=== PATIENT | male | born 1955 | race Caucasian/White ===

== ENCOUNTER 2020-01-15 22:31 | Outpatient (REF) | payer OTHER, SELFPAY ==
[2020-01-15 22:20] LABS: Calculated LDL 97 mg/dL (<100); Cholesterol 197 mg/dL (<200); HDL Cholesterol 92 mg/dL (40-60); Triglyceride 43 mg/dL (<150)
[2020-01-19 09:11] LABS: PSA, Screening 0.4 ng/mL (0.0-4.5)
== END 2020-01-15 22:51 ==
LOC: NCHCN 22:31
PROVIDERS: PCP Internal Medicine; Visit Provider Internal Medicine
DX: Z00.00 Encounter for general adult medical examination without abnormal findings (principal); Z13.220 Encounter for screening for lipoid disorders; Z12.5 Encounter for screening for malignant neoplasm of prostate
CPT/HCPCS: 80061; 84153

== ENCOUNTER 2020-04-13 17:37 | Outpatient (REF) | payer OTHER, SELFPAY ==
[2020-04-18 16:08] LABS: Patient Race White; SARS-CoV-2 RNA Undetected (Undetected); SARS-CoV-2 Specimen Source Nasal
== END 2020-04-13 17:57 ==
LOC: NCHCN 17:37
PROVIDERS: PCP Internal Medicine; Visit Provider Nurse Practitioner Family
DX: Z11.59 Encounter for screening for other viral diseases (principal)
CPT/HCPCS: U0003

== ENCOUNTER 2021-03-28 00:49 | Outpatient (RCR) | payer MEDICARE, OTHER, SELFPAY ==
[2021-03-07] MEDS: Normal Saline Flush 10 ML SYR IVP (10:22)
[2021-03-07 10:47] LABS: Abs Immature Grans 0.05 10^3/uL (0.0-0.06); Absolute Basophil Count 0.03 10^3/uL (0.0-0.2); Absolute Eosinophil Count 0.07 10^3/uL (0.0-0.7); Absolute Lymphocyte Count 0.57 10^3/uL (1.2-3.4); Absolute Monocyte Count 0.72 10^3/uL (0.1-0.8); Absolute Neutrophil Count 11.74 10^3/uL (1.2-6.7); Basophils % 0.2; Eosinophils % 0.5; HCT 36.4 % (40.0-50.0); HGB 11.5 g/dL (13.5-17.5); Immature Grans % 0.4; Lymphocytes % 4.3; MCH 27.8 pg (27.0-33.0); MCHC 31.6 % (32.0-36.0); MCV 88.1 fL (80-95); Monocytes % 5.5; Neutrophils % 89.1; Nucleated RBC 0 %; Platelet Count 390 10^3/uL (130-400); RBC 4.13 10^6/uL (4.36-5.78); RDW 14.9 % (11.8-14.1); RDW-SD 48.5 fL; WBC 13.18 10^3/uL (4.4-10.8)
[2021-03-07 10:51] LABS: ALT 20 U/L (16-63); AST 14 U/L (15-37); Albumin 2.7 g/dL (3.4-5.0); Alkaline Phosphatase 58 U/L (46-116); Anion Gap 3.8 mmol/L (3-11); BUN 20 mg/dL (7-18); Bilirubin, Total 0.2 mg/dL (0.2-1.0); CO2 32.2 mmol/L (21.0-32.0); CREATININE 0.9 mg/dL (0.70-1.30); Calcium 8.6 mg/dL (8.5-10.1); Chloride 99 mmol/L (98-107); Glucose 113 mg/dL (74-106); Magnesium 2.1 mg/dL (1.8-2.4); Potassium 4.3 mmol/L (3.5-5.1); Sodium 135 mmol/L (136-145); Total Protein 7.1 g/dL (6.4-8.2)
[2021-03-07] MEDS: Heparin 500 UNITS/5 ML SYRINGE (13:52)
[2021-03-28] MEDS: Heparin 500 UNITS/5 ML SYRINGE IV (09:42)
[2021-03-28] MEDS: Normal Saline Flush 10 ML SYR IVP (09:42)
[2021-03-28 09:50] LABS: Abs Immature Grans 0.07 10^3/uL (0.0-0.06); Absolute Eosinophil Count 0.01 10^3/uL (0.0-0.7); Absolute Lymphocyte Count 0.61 10^3/uL (1.2-3.4); Basophils % 0.4; Eosinophils % 0.1; HCT 36.5 % (40.0-50.0); HGB 11.5 g/dL (13.5-17.5); Immature Grans % 0.5; Lymphocytes % 4.5; MCH 27.5 pg (27.0-33.0); MCHC 31.5 % (32.0-36.0); MCV 87.3 fL (80-95); MPV 8.2 fL (8.0-11.0); Monocytes % 4.6; Neutrophils % 89.9; Nucleated RBC 0 %; Platelet Count 393 10^3/uL (130-400); RBC 4.18 10^6/uL (4.36-5.78); RDW 14.6 % (11.8-14.1); RDW-SD 46.5 fL; WBC 13.57 10^3/uL (4.4-10.8)
[2021-03-28 09:52] LABS: Absolute Basophil Count 0.05 10^3/uL (0.0-0.2); Absolute Monocyte Count 0.62 10^3/uL (0.1-0.8)
[2021-03-28 10:13] LABS: ALT 21 U/L (16-63); AST 16 U/L (15-37); Albumin 2.8 g/dL (3.4-5.0); Alkaline Phosphatase 61 U/L (46-116); Anion Gap 5.1 mmol/L (3-11); BUN 13 mg/dL (7-18); Bilirubin, Total 0.2 mg/dL (0.2-1.0); CO2 29.9 mmol/L (21.0-32.0); CREATININE 0.8 mg/dL (0.70-1.30); Calcium 8.6 mg/dL (8.5-10.1); Chloride 102 mmol/L (98-107); Glucose 101 mg/dL (74-106); Potassium 4.3 mmol/L (3.5-5.1); Sodium 137 mmol/L (136-145)
== END 2021-04-03 23:59 | disposition home or self-care (01) ==
LOC: INF 00:49
PROVIDERS: PCP Internal Medicine; Visit Provider Internal Medicine Hematology & Oncology
DX: C32.9 Malignant neoplasm of larynx, unspecified (principal); Z45.2 Encounter for adjustment and management of vascular access device
CPT/HCPCS: 36591; 80053; 83735; 85025

== ENCOUNTER 2021-04-18 02:48 | Outpatient (RCR) | payer MEDICARE, OTHER, SELFPAY ==
[2021-04-18] MEDS: Heparin 500 UNITS/5 ML SYRINGE IV (11:01)
[2021-04-18] MEDS: Normal Saline Flush 10 ML SYR IVP (11:01)
[2021-04-18 11:10] LABS: Abs Immature Grans 0.03 10^3/uL (0.0-0.06); Absolute Basophil Count 0.02 10^3/uL (0.0-0.2); Absolute Eosinophil Count 0.06 10^3/uL (0.0-0.7); Absolute Lymphocyte Count 0.59 10^3/uL (1.2-3.4); Absolute Monocyte Count 0.37 10^3/uL (0.1-0.8); Absolute Neutrophil Count 6.44 10^3/uL (1.2-6.7); Basophils % 0.3; Eosinophils % 0.8; HCT 32.7 % (40.0-50.0); HGB 10.4 g/dL (13.5-17.5); Immature Grans % 0.4; Lymphocytes % 7.9; MCH 28.1 pg (27.0-33.0); MCHC 31.8 % (32.0-36.0); MCV 88.4 fL (80-95); MPV 8.4 fL (8.0-11.0); Monocytes % 4.9; Neutrophils % 85.7; Nucleated RBC 0 %; Platelet Count 353 10^3/uL (130-400); RDW 14.9 % (11.8-14.1); RDW-SD 47.1 fL; WBC 7.51 10^3/uL (4.4-10.8)
[2021-04-18 11:37] LABS: ALT 20 U/L (16-63); AST 15 U/L (15-37); Albumin 2.8 g/dL (3.4-5.0); Alkaline Phosphatase 62 U/L (46-116); Anion Gap 5.2 mmol/L (3-11); BUN 15 mg/dL (7-18); Bilirubin, Total 0.2 mg/dL (0.2-1.0); CO2 31.8 mmol/L (21.0-32.0); CREATININE 0.8 mg/dL (0.70-1.30); Calcium 8.6 mg/dL (8.5-10.1); Chloride 102 mmol/L (98-107); Glucose 98 mg/dL (74-106); Magnesium 1.9 mg/dL (1.8-2.4); Potassium 4.7 mmol/L (3.5-5.1); Sodium 139 mmol/L (136-145)
== END 2021-05-03 23:59 | disposition home or self-care (01) ==
LOC: INF 02:48
PROVIDERS: PCP Internal Medicine; Visit Provider Internal Medicine Hematology & Oncology
DX: C32.9 Malignant neoplasm of larynx, unspecified (principal); Z45.2 Encounter for adjustment and management of vascular access device
CPT/HCPCS: 36591; 80053; 83735; 85025

== ENCOUNTER 2021-05-09 02:06 | Outpatient (RCR) | payer MEDICARE, OTHER, SELFPAY ==
[2021-05-09] MEDS: Normal Saline Flush 10 ML SYR IVP (07:57)
[2021-05-09 08:07] LABS: Abs Immature Grans 0.02 10^3/uL (0.0-0.06); Absolute Basophil Count 0.07 10^3/uL (0.0-0.2); Absolute Eosinophil Count 0.15 10^3/uL (0.0-0.7); Absolute Lymphocyte Count 0.68 10^3/uL (1.2-3.4); Absolute Monocyte Count 0.53 10^3/uL (0.1-0.8); Absolute Neutrophil Count 4.23 10^3/uL (1.2-6.7); Basophils % 1.2; Eosinophils % 2.6; HCT 31.4 % (40.0-50.0); HGB 9.7 g/dL (13.5-17.5); Immature Grans % 0.4; MCH 27.9 pg (27.0-33.0); MCHC 30.9 % (32.0-36.0); MCV 90.2 fL (80-95); MPV 8.4 fL (8.0-11.0); Monocytes % 9.3; Neutrophils % 74.5; Nucleated RBC 0 %; Platelet Count 365 10^3/uL (130-400); RBC 3.48 10^6/uL (4.36-5.78); RDW 16.3 % (11.8-14.1); RDW-SD 52.4 fL; WBC 5.68 10^3/uL (4.4-10.8)
[2021-05-09 08:21] LABS: ALT 19 U/L (16-63); AST 17 U/L (15-37); Albumin 2.7 g/dL (3.4-5.0); Alkaline Phosphatase 65 U/L (46-116); BUN 15 mg/dL (7-18); Bilirubin, Total 0.2 mg/dL (0.2-1.0); CREATININE 0.8 mg/dL (0.70-1.30); Calcium 8.5 mg/dL (8.5-10.1); Chloride 100 mmol/L (98-107); Glucose 88 mg/dL (74-106); Magnesium 1.7 mg/dL (1.8-2.4); Potassium 4.6 mmol/L (3.5-5.1); Sodium 135 mmol/L (136-145); Total Protein 6.5 g/dL (6.4-8.2)
== END 2021-06-03 23:59 | disposition home or self-care (01) ==
LOC: INF 02:06
PROVIDERS: PCP Internal Medicine; Visit Provider Internal Medicine Hematology & Oncology
DX: C32.9 Malignant neoplasm of larynx, unspecified (principal); Z45.2 Encounter for adjustment and management of vascular access device
CPT/HCPCS: 36591; 80053; 83735; 85025

== ENCOUNTER 2021-05-20 02:37 | Emergency (ER) | payer MEDICARE, OTHER, SELFPAY ==
--- NOTE | 2021-05-20 | DI.RAD_ITS ---
Exam(s) XR ABDOMEN FLAT PLATE EXAM: XR ABDOMEN FLAT PLATE CLINICAL HISTORY: post injection of contrast to confirm tube placement. TECHNIQUE: 2D digital imaging was performed. COMPARISON: CR,XR XR ABDOMEN FLAT PLATE from 05/20/2021 FINDINGS: Single AP supine portable view of the abdomen reveals contrast within the gastric lumen and duodenal C-loop. The gastrostomy tube balloon and tip are within the mid stomach level. There is no extra judson geo contrast extravasation. IMPRESSION: DATA REPOSITORY: RADIATION DOSE DELIVERED:
[2021-05-20 02:43] VITALS: BP 100/62; PULSE 54; RESP 16; TEMP 36.6; O2SAT 100
--- NOTE | 2021-05-20 02:43 | ED.GENADUL_ITS ---
Discharge Plan Disposition Patient Disposition: HOME Condition: Good Discharge Details Clinical Impression: Dislodged gastrostomy tube Primary Care Provider: Soha Gregg ED Provider: Gucci Slaughter Meds and Earnest Rx's Prescriptions: Continued famotidine 40 mg/5 mL (8 mg/mL) suspension 20 mg feeding tube BID RF: 0 ibuprofen 100 mg/5 mL suspension 200 mg feeding tube BID PRNRF: 0 metronidazole 250 mg tablet 250 mg feeding tube Q24H RF: 0 acetaminophen 160 mg/5 mL liquid 1,000 mg PO Q4H PRNRF: 0 oxycodone 5 mg/5 mL solution 5 mg PO Q4H PRNRF: 0 gabapentin 300 mg capsule 300 mg feeding tube TID RF: 0 ondansetron 8 mg tablet,disintegrating 8 mg PO Q8H PRNRF: 0 metoclopramide HCl 5 mg/5 mL solution 10 mg feeding tube Q8H RF: 0 hydrocortisone valerate 0.2 % cream 1 applic topical BID PRNRF: 0 Discharge Instructions Additional Instructions: We did not have a gastrotomy tube but did have the Montana-Álvarez. AXR with contrast shows good position. Be sure to read the directions supplied and keep your tubes clean. Return to ED if problems. Medical Decision Making Gastrostomy tube has been in place for over 6 months. Patient and report that his oncologist was going to have the treatment replace with a Montana-Álvarez device. We did not have Gastrostomy tube but we did have the Mi-Álvarez device. This was placed without complication. X-ray with Omnipaque injection obtained confirming correct placement. Patient discharged home with required attachments and instructions. HPI General Mode of arrival: ambulatory . Date/Time Provider Initiated Documentation: 05/20/21 02:38 . Limitations to Documentation: no limitations . Information obtained by: patient and RN notes reviewed . HPI Narrative: Patient presents to the ED after accidental dislodgment of the gastrostomy tube which he is reliant on due to trismus. They brought the old tube with them. There was no significant bleeding or drainage. He has no pain. Related Data Home Medications Medication Instructions Recorded Confirmed acetaminophen 160 mg/5 mL oral 1,000 mg PO Q4H PRN ml 04/25/21 05/20/21 liquid famotidine 40 mg/5 mL (8 mg/mL) 20 mg FEEDING TUBE BID 04/25/21 05/20/21 oral suspension gabapentin 300 mg capsule 300 mg FEEDING TUBE TID 04/25/21 05/20/21 hydrocortisone valerate 0.2 % 1 applic TOPICAL BID PRN 04/25/21 05/20/21 topical cream ibuprofen 100 mg/5 mL oral 200 mg FEEDING TUBE BID PRN ml 04/25/21 05/20/21 suspension metoclopramide HCl 5 mg/5 mL oral 10 mg FEEDING TUBE Q8H ml 04/25/21 05/20/21 solution metronidazole 250 mg tablet 250 mg FEEDING TUBE Q24H tab 04/25/21 05/20/21 ondansetron 8 mg disintegrating 8 mg PO Q8H PRN 04/25/21 05/20/21 tablet oxycodone 5 mg/5 mL oral solution 5 mg PO Q4H PRN 04/25/21 05/20/21 Allergies Allergy/AdvReac Type Severity Reaction Status Date / Time cetuximab Allergy Verified 05/20/21 02:46 Review of Systems Constitutional Constitutional: Denies fever(s) Cardiovascular Cardiovascular: Denies chest pain and Denies dyspnea Respiratory Respiratory: Denies cough and Denies dyspnea Gastrointestinal Gastrointestinal: Denies abdominal pain PFSH All Active Problems (Updated 05/20/21 @ 04:27 by Gucci Slaughter MD) Dislodged gastrostomy tube (Acute) Medical History (Updated 05/20/21 @ 04:27 by Gucci Slaughter MD) Abscess Dysphagia Laryngeal cancer Multiple facial fractures Surgical History S/P appendectomy Social History Smoking/Tobacco Use Status: Former Tobacco Use Smoking risk assessment performed?: Yes Substance use type: does not use Do you feel safe at home: Yes Do you feel safe in your relationship?: Yes Exam Const General: comfortable and no acute distress Orientation: alert and oriented x3 HENMT Head: normocephalic and atraumatic Resp Effort & Inspection: normal respiratory effort GI Inspection: other (Gtube site in left upper) Palpation: soft and nontender Neuro General: patient alert, patient oriented x3 and moves all extremities Cognition: normal cognition Procedures Feeding Tube Replacement Type of Tube: gastrostomy Insertion Site Prior to Procedure: clean Tube Used for Reinsertion: other (Montana-Álvarez ) Slovak Tube Size (F): 18 Balloon size (mL): 10 Verification of Placement: gastrograffin injection Patient Tolerated Procedure: well and no complications
--- NOTE | 2021-05-20 03:00 | DI.RAD_ITS ---
Exam(s) XR ABDOMEN FLAT PLATE EXAM: 2D digital imaging was performed. CLINICAL HISTORY: check feeding tube placement. COMPARISON: No exams were available for comparison TECHNIQUE: Supine views of the abdomen performed. FINDINGS: BOWEL GAS PATTERN: Nondistended. CALCIFICATIONS: No radiopaque calcifications. OSSEOUS STRUCTURES: Normal for age. OTHER FINDINGS: There is a percutaneous gastrostomy tube projected just to the left of the lumbar spi ne. Lung bases: Pulmonary fibrotic changes are seen in the lungs. The distal aspect of what appears to b e a central venous catheter is seen to the right of the thoracic spine. Please correlate clinically. IMPRESSION: 1. Nonobstructive bowel gas pattern. 2. Percutaneous gastrostomy tube seen to the left of the lumbar spine. DATA REPOSITORY: RADIATION DOSE DELIVERED:
[2021-05-20 04:30] VITALS: BP 102/58; PULSE 58; RESP 16; O2SAT 98
--- NOTE | 2021-05-20 05:50 | DI.VRAD_ITS ---
PROCEDURE INFORMATION: Exam: XR Abdomen Exam date and time: 05/20/2021 3:13 AM Age: 65 years old Clinical indication: Other: Tube placement TECHNIQUE: Imaging protocol: XR of the abdomen. Views: Frontal supine view of the abdomen. 1 View. COMPARISON: CT NECK CHEST W 03/07/2021 2:12 PM FINDINGS: Gastrointestinal tract: Gastrostomy tube balloon projects over the gastric body. Contrast injected through the tube opacifies the partially decompressed stomach and proximal descending duodenum Bones/joints: Unremarkable. IMPRESSION: Gastrostomy tube in the stomach as noted Dictated and Authenticated by: Gigi Weeks MD. Ordering:CELIA Duckworth MD
--- NOTE | 2021-05-20 05:50 | DI.VRAD_ITS ---
PROCEDURE INFORMATION: Exam: XR Abdomen Exam date and time: 05/20/2021 4:20 AM Age: 65 years old Clinical indication: Other: Tube placement w/contrast TECHNIQUE: Imaging protocol: XR of the abdomen. Views: Frontal supine view of the abdomen. 1 View. COMPARISON: CR XR ABDOMEN FLAT PLATE 05/20/2021 3:16 AM FINDINGS: Gastrointestinal tract: Gastrostomy tube balloon projects over the gastric body. Contrast noted within the partially decompressed stomach and proximal duodenum Bones/joints: Unremarkable. IMPRESSION: Gastrostomy tube presumably in the gastric body Dictated and Authenticated by: Gigi Weeks MD. Ordering:CELIA Duckworth MD
== END 2021-05-20 04:38 | disposition home or self-care (01) ==
PROVIDERS: Emergency Provider Emergency Medicine; PCP Internal Medicine
DX: T85.528A Displacement of other gastrointestinal prosthetic devices, implants and grafts, initial encounter (principal)
CPT/HCPCS: 43762; 99283; 74018; 99282

== ENCOUNTER 2021-07-04 01:14 | Outpatient (RCR) | payer MEDICARE, OTHER, SELFPAY ==
[2021-06-06] MEDS: Normal Saline Flush 10 ML SYR IVP (07:49)
[2021-06-06 08:01] LABS: Abs Immature Grans 0.02 10^3/uL (0.0-0.06); Absolute Basophil Count 0.06 10^3/uL (0.0-0.2); Absolute Eosinophil Count 0.07 10^3/uL (0.0-0.7); Absolute Lymphocyte Count 0.59 10^3/uL (1.2-3.4); Absolute Monocyte Count 0.51 10^3/uL (0.1-0.8); Absolute Neutrophil Count 3.97 10^3/uL (1.2-6.7); Basophils % 1.1; Eosinophils % 1.3; HCT 31.1 % (40.0-50.0); HGB 9.7 g/dL (13.5-17.5); Immature Grans % 0.4; Lymphocytes % 11.3; MCH 29.1 pg (27.0-33.0); MCHC 31.2 % (32.0-36.0); MCV 93.4 fL (80-95); MPV 8.5 fL (8.0-11.0); Monocytes % 9.8; Neutrophils % 76.1; Nucleated RBC 0 %; Platelet Count 291 10^3/uL (130-400); RBC 3.33 10^6/uL (4.36-5.78); RDW 18.6 % (11.8-14.1); WBC 5.22 10^3/uL (4.4-10.8)
[2021-06-06 08:19] LABS: ALT 21 U/L (16-63); AST 18 U/L (15-37); Albumin 2.9 g/dL (3.4-5.0); Alkaline Phosphatase 64 U/L (46-116); BUN 23 mg/dL (7-18); Bilirubin, Total 0.3 mg/dL (0.2-1.0); CREATININE 0.6 mg/dL (0.70-1.30); Calcium 8.3 mg/dL (8.5-10.1); Chloride 102 mmol/L (98-107); Glucose 98 mg/dL (74-106); Magnesium 1.8 mg/dL (1.8-2.4); Potassium 4.5 mmol/L (3.5-5.1); Sodium 138 mmol/L (136-145); Total Protein 6.6 g/dL (6.4-8.2)
[2021-07-04 07:41] LABS: Abs Immature Grans 0.03 10^3/uL (0.0-0.06); Absolute Basophil Count 0.06 10^3/uL (0.0-0.2); Absolute Eosinophil Count 0.12 10^3/uL (0.0-0.7); Absolute Monocyte Count 0.49 10^3/uL (0.1-0.8); Absolute Neutrophil Count 4.98 10^3/uL (1.2-6.7); Eosinophils % 1.9; HCT 33.9 % (40.0-50.0); HGB 10.7 g/dL (13.5-17.5); Immature Grans % 0.5; Lymphocytes % 9.6; MCH 29.6 pg (27.0-33.0); MCHC 31.6 % (32.0-36.0); MCV 93.6 fL (80-95); MPV 8.3 fL (8.0-11.0); Monocytes % 7.8; Neutrophils % 79.2; Nucleated RBC 0 %; Platelet Count 298 10^3/uL (130-400); RBC 3.62 10^6/uL (4.36-5.78); RDW 17.4 % (11.8-14.1); RDW-SD 60.5 fL; WBC 6.28 10^3/uL (4.4-10.8)
[2021-07-04] MEDS: Normal Saline Flush 10 ML SYR IVP (08:17)
[2021-07-04 08:34] LABS: ALT 20 U/L (16-63); AST 23 U/L (15-37); Albumin 3.1 g/dL (3.4-5.0); Alkaline Phosphatase 68 U/L (46-116); BUN 18 mg/dL (7-18); Bilirubin, Total 0.2 mg/dL (0.2-1.0); CREATININE 0.6 mg/dL (0.70-1.30); Calcium 8.5 mg/dL (8.5-10.1); Chloride 100 mmol/L (98-107); Glucose 105 mg/dL (74-106); Magnesium 1.5 mg/dL (1.8-2.4); Potassium 4.5 mmol/L (3.5-5.1); Sodium 135 mmol/L (136-145)
== END 2021-07-04 23:59 | disposition home or self-care (01) ==
LOC: INF 01:14
PROVIDERS: PCP Internal Medicine; Visit Provider Internal Medicine Hematology & Oncology
DX: C32.9 Malignant neoplasm of larynx, unspecified (principal); Z45.2 Encounter for adjustment and management of vascular access device
CPT/HCPCS: 36591; 80053; 83735; 85025

== ENCOUNTER 2021-07-25 02:15 | Outpatient (CLI) | payer MEDICARE, OTHER, SELFPAY ==
[2021-07-25 11:32] LABS: Source Nasal/Nares
[2021-07-25 17:58] LABS: COVID-19 PCR Negative (Negative)
== END 2021-07-25 02:16 | disposition home or self-care (01) ==
LOC: LBO 02:15
PROVIDERS: PCP Internal Medicine; Visit Provider Family Medicine
DX: Z20.822 Contact with and (suspected) exposure to COVID-19 (principal); Z01.818 Encounter for other preprocedural examination
CPT/HCPCS: 87635; U0005

== ENCOUNTER 2021-07-27 00:19 | Outpatient (CLI) | payer MEDICARE, OTHER, SELFPAY ==
--- NOTE | 2021-07-27 | DI.RAD_ITS ---
Exam(s) RF MODIFIED SPEECH BA SWALLOW TECHNIQUE: Modified barium swallow was performed in conjunction with speech pathology. CONTRAST MATERIAL: Multiple consistencies barium were administered.. COMPARISON: No exams were available for comparison FINDINGS: Note that this is not a dedicated esophagram, distal esophagus not evaluated. There was laryngeal penetration and mild aspiration of with thin liquids. There is pooling in the va llecula and piriform sinuses with all consistencies, greater with increasing thickness of consistenc y. There is adequate cough reflex. Please see speech pathology report for complete details. IMPRESSION: Mild aspiration with thin liquids. Pooling in the vallecular and piriform sinuses. Fluoro time 3 minutes 30 seconds RADIATION DOSE DELIVERED: Chanr=21.2 mGy
--- NOTE | 2021-07-27 10:04 | ST.MBS_ITS ---
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 He is currently followed by Palliative Care, with plan to continue Panitumumab until progression or intolerance.?Patient is referred for VFSE/MBSS from Dr. Rueda given ongoing dysphagia, concerns for aspiration; patient has history of pneumonitis as recently as 02/2021; [place] [facility] [place] Moisés Reeves MD[place] who suspected cough is most likely secondary to aspiration vs airway obstruction from RML tumor; purpose of study today to address safety/comfort of swallowing in context of current disease course. 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 S/P appendectomy Previous Imaging: Patient does indicate prior VFSE/MBSS (with simultaneous ?FEES) at [place], spouse reports patient had worked with FREEDOM Mendoza over Summer 2020 for swallowing exercises and imaging, however unable to locate this documentation despite multiple attempts, including assistance from clinical nurse navigator through [facility]. SUBJECTIVE: Patient arrives with spouse today. Patient reports continued difficulties with speaking at length due to xerostomia and trismus, although this has improved relative to recent GENETICS PHYSICIAN visit; he continues to hack up thick paste; is able to tolerate IDDSI levels 2-4 without overt s/sx aspiration at this time, reports he typically is not swallowing any liquids or using any kind of thickener at this time; reports cough worsens with regurgitation, even more so if he is lying flat, however he has had less coughing lately, more throat clearing and volitional regurgitation, during which times he re-swallows residue which he is able to feel. *Patient does note that he was unable to feel any new sensation during observed aspiration episode. Other: Trismus presentation/severity LEIF not measured this date, however much improved relative to 7 mm as of 04/18/21 IMPRESSIONS: Overall Moderate-severe oropharyngeal dysphagia (Swallow safety is mild- moderately impaired; swallow efficiency is severely impaired / DIGEST Score = 3) with question of esophageal component as evidenced by severe pyriform sinus residue, esophageal retention and noted hypertrophy at level of cervical esophagus (C5-C6), likely chronic; overall dysphagia characterized by reduced laryngeal elevation, anterior hyoid excursion, incomplete laryngeal vestibule closure, and absent epiglottic inversion, resulting in penetration during initial swallow onset from current bolus across all trials; absent pharyngeal stripping wave, reduced tongue base retraction, and reduced pharyngeal contraction (especially reduced on LEFT side), combined with minimal UES opening, results in significant pharyngeal residue, primarily within pyriform sinuses (severe); with trial of thin liquid wash, (silent) aspiration is seen during initial swallow onset from current bolus, and after initial swallow from combination of thin liquid+pharyngeal stasis. Patient does benefit from head turn to RIGHT for airway protection, successive swallows for reduction of overall pharyngeal residue prior to introduction of new bolus material. Dysphagia presentation likely due to disuse atrophy as well as [facility] effects of PANEL MONITOR (completed 2018), ie radiation fibrosis. Patient appears to be at moderate risk for potential aspiration PNA and/or pulmonary compromise and low-moderate for malnutrition, moderate risk for dehydration. Diet modification is indicated; non-oral nutrition continues to be indicated. Swallow prognosis is fair, given age, willingness to participate in direct treatment, patient/caregiver training in risk management as outlined, including use of trialed compensatory strategies as outlined above. Barriers include expected effects from radiation fibrosis, post surgical anatomical changes. Patient appears to be a good candidate for behavioral swallow rehabilitation. Specialist referrals: May consider GI, ENT (to address hypertrophy noted at C5- C6 level; does appear to contribute to impedence of bolus flow + mild esophageal retention) *Continue ongoing support through Palliative Care, RD Ancillary tests: N/A Diet texture recommendation: IDDSI Level 5-Minced & Moist Solids, 1-Slightly Thick Liquids 0-Thin Liquids outside of meals only PO medications as tolerated and/or via tube as appropriate Please see further details at www.iddsi.org Risk Management: Head turn to RIGHT side prior to swallow onset Multiple swallows per bolus (x7-10) to encourage clearance of significant pharyngeal stasis/residue Behavioral reflux precautions, including upright position during + 90 mins after meals. Small bites, no larger than [id number] Very small sips, approx 5mL / teaspoon Avoid intake of IDDSI Level 0 thin liquids during meal If drinking thin liquids, 5mL at a time; follow with hard throat clear > Re-swallow Control risk factors for aspiration pneumonia via (a) thorough oral hygiene & (b) maintaining physical mobility as tolerated PLAN: Therapy: Recommend subsequent outpatient session with GENETICS PHYSICIAN to review results of today's exam and develop treatment plan as appropriate, address trismus management Goal: TBD pending patient/caregiver interview Follow-up exam: May consider repeat MBSS or FEES once treatment has been completed, per clinical outcomes and patient interview Thank you for allowing me to take part in this patient's care. Please feel free to contact me with any questions/concerns. Estela Muñiz MA [facility]-GENETICS PHYSICIAN Speech Language Pathologist [phone] OBJECTIVE: Videofluoroscopic Swallow Evaluation (VFSE/MBSS) was conducted in the lateral and [id number] projections by Speech-Language Pathologist, in collaboration with Radiologist, to evaluate oropharyngeal swallow function. Anatomic view under fluoroscopy: Other - Notable post-surgical changes PO Barium Contrast Trials Oral barium water-soluble contrast was administered as follows: IDDSI Level 0 Varibar thin liquid (40% w/v) IDDSI Level 2 Varibar nectar thick/mildly thick liquid (40% w/v) IDDSI Level 3 Varibar thin honey/liquidised/moderately-thick (40% w/v) IDDSI Level 4 Varibar pudding/pureed/extremely thick (40% w/v) IDDSI Level 7 Regular Solid: 1/2 miah cracker coated in 3 mL Varibar pudding PHYSIOLOGIC FINDINGS (1) Oral Impairment 1 Lip Closure [0-No labial escape] 2 Tongue Control [0- Cohesive bolus between tongue to palatal seal] 3 Bolus Preparation/Mastication [0- Timely and efficient chewing/mashing] 4 Bolus Transport/Lingual Motion [0- Brisk tongue motion] 5 Oral residue [1- Trace residue lining oral structures] Location floor of mouth, palate, tongue 6 Initiation of pharyngeal swallow [1- Bolus head in valleculae] Pharyngeal Impairment 7 Velar Elevation [1- Trace column of contrast or air between soft palate and pharyngeal wall] 8 Laryngeal Elevation [2- Minimal superior movement of thyroid cartilage with minimal approximation of arytenoids to epiglottic petiole] 9 Anterior Hyoid Excursion [1- Partial anterior movement] 10 Epiglottic Movement [2- Absent/No inversion] 11 Laryngeal Vestibule Closure 1- Incomplete; narrow column of air/cont rast in laryngeal vestibule Penetration occurs during initial swallow onset from current bolus Aspiration occurs during initial swallow onset from current bolus, and after initial swallow from combination of pharyngeal stasis PAS / Overall 8-Point Penetration-Aspiration Scale (2) 6 - Material enters the airway passes below the vocal folds and is ejected into the larynx or out of the airway Clinical Indicator(s) of Prandial/Postprandial Aspiration Throat Clear ( inconsistent) (Of note - cough noted only when cued, n ot volitional) 12 Pharyngeal Stripping Wave [2- Absent] 13 Pharyngeal Contraction [2- Unilateral bulging] on Left side 14 PES/UES Opening [2- Minimal distension and minimal duration; marked obstructi on of flow] 15 Tongue Base Retraction [3- Wide column of contrast between tongue base and posterior pharyngeal wall ] 16 Pharyngeal residue [3- Majority of residue within or on pharyngeal structures ] Location [place] Pharyngeal Residue Severity Rating Scale(3) Diffuse; >3 areas [Tongue base] [Valleculae] III Mild 5-25% Epiglottic ligament visible [Pharyngeal wall] [Pyriform sinuses] V Severe >50% Filled to aryepiglottic fold [Aryepiglottic folds] Esophageal Impairment 17 Esophageal Clearance in Upright Position [1- Esophageal retention] Notes This study was performed for interpretation only of the oropharyngeal and pharyngoesophageal domains of swallowing, and is not intended to diagnose any other radiologic abnormalities or substitute for a formal esophagram study. hypertrophy noted at C5-C6 level; does appear to contribute to impedence of bolus flow DIGEST Scale Rating (4) Interaction of Assigned Safety and Efficiency Grades (0=No Impairment, 1=Mild, 2=Moderate, 3=Severe, 4=Life Threatening) Safety Grade S0 S1 S2 S3 S4 Efficiency Grade E0 0 1 2 3 3 E1 1 1 2 3 3 E2 1 2 2 3 3 E3 2 2 3 3 4 E4 3 3 3 4 4 Overall Severe Pharyngeal Impairment - Above score(s) represent swallowing events without application of compensatory techniques - Breaking of MBSimP protocol for current study likely [under, over]-grades above safety impairment GIFTY: (5) Severity LEVEL 2 - Nonoral nutrition necessary - Moderate-severe dysphagia; Maximum assistance or use of strategies with partial PO only (tolerates at least 1 consistency safely with total use of strategies) Trialed Compensatory Strategies & Outcome: Maneuvers Successful/Unsuccessful (+/-) Postures Successful/Unsuccessful (+/-) 3 second Preparatory Set N/A Chin Tuck Posture N/A Cough Posterior Head tilt N/A Reflexive N/A *Cued + Throat Clear Head Turn/Rotation to *Reflexive + Left + (gradual reduction in res idue, consecutive dry swallows) Cued N/A Right + (most reduction in residue, fewer consecutive dry swallows needed) Saliva swallow x7-10 + (gradual reduction in residue) Head Tilt to Supraglottic Swallow N/A Left N/A Super-supraglottic Swallow N/A Right N/A Bolus Modifications Successful/Unsuccessful (+/-) Delivery/Alternating Consistencies - Wash with thin - (*Advise against; aspiration occurs during, after swallow onset with thin wash) Delivery/Via Straw N/A Reduced Volume + Reduced Rate of Intake + Increased Viscosity + Other: Coding CPT Codes MOTION FLUOROSCOPY/SWALLOW - [id number] ([id number]) 1: Luciana Cobb al. ?MBS measurement tool for swallow impairment--MBSImp: establishing a standard.? Dysphagia vol. 23,4 (2008): 392-405. doi:10.1007/w87770-014-8657-4 2: (Chantal, et al, 1995) 3: (Bibiana et al, 2015) 4: (OConstance, et al, 1999, Mary, et al. Cancer. 2017;123(1):62-70) The Dynamic Imaging Grade of Swallowing Toxicity (DIGEST) Score represents a set of structured criteria primarily validated for head and neck cancer patients to grade the interaction of safety, efficiency, and overall impairment of the pharyngeal swallow, meant to assist in prioritization of targets for dysphagia treatment planning. 5: The Dysphagia Outcome and Severity Scale is a 7-point scale developed to systematically rate the functional severity of dysphagia based on objective assessment and make recommendations for diet level, independence level, and type of nutrition.
[2021-07-27] MEDS: Barium Sulfate 81% w/w for Oral Suspension 148 GM BTL PO (16:10)
[2021-07-27] MEDS: Barium Sulfate 40% W/V 240 ML BTL PO (16:11)
[2021-07-27] MEDS: Barium Sulfate Oral Paste 40% W/V 230 ML TUBE PO (16:13)
== END 2021-07-27 00:39 ==
PROVIDERS: PCP Internal Medicine; Visit Provider Speech-Language Pathologist
DX: C32.9 Malignant neoplasm of larynx, unspecified (principal); R13.10 Dysphagia, unspecified
CPT/HCPCS: 92611; 74221

== ENCOUNTER 2021-08-01 01:26 | Outpatient (RCR) | payer MEDICARE, OTHER, SELFPAY ==
[2021-08-01] MEDS: Heparin 500 UNITS/5 ML SYRINGE IV (10:05)
[2021-08-01] MEDS: Normal Saline Flush 10 ML SYR IVP (10:05)
[2021-08-01 10:24] LABS: Abs Immature Grans 0.02 10^3/uL (0.0-0.06); Absolute Basophil Count 0.06 10^3/uL (0.0-0.2); Absolute Eosinophil Count 0.13 10^3/uL (0.0-0.7); Absolute Lymphocyte Count 0.55 10^3/uL (1.2-3.4); Absolute Monocyte Count 0.41 10^3/uL (0.1-0.8); Absolute Neutrophil Count 4.02 10^3/uL (1.2-6.7); Basophils % 1.2; Eosinophils % 2.5; HCT 32.5 % (40.0-50.0); HGB 10.6 g/dL (13.5-17.5); Immature Grans % 0.4; Lymphocytes % 10.6; MCH 30.5 pg (27.0-33.0); MCHC 32.6 % (32.0-36.0); MCV 93.7 fL (80-95); MPV 8.5 fL (8.0-11.0); Monocytes % 7.9; Neutrophils % 77.4; Nucleated RBC 0 %; Platelet Count 283 10^3/uL (130-400); RBC 3.47 10^6/uL (4.36-5.78); RDW 16.3 % (11.8-14.1); RDW-SD 55.7 fL; WBC 5.19 10^3/uL (4.4-10.8)
[2021-08-01 10:45] LABS: ALT 22 U/L (16-63); AST 21 U/L (15-37); Albumin 3.1 g/dL (3.4-5.0); Alkaline Phosphatase 73 U/L (46-116); Anion Gap 5.8 mmol/L (3-11); BUN 18 mg/dL (7-18); Bilirubin, Total 0.2 mg/dL (0.2-1.0); CO2 27.2 mmol/L (21.0-32.0); CREATININE 0.7 mg/dL (0.70-1.30); Calcium 8.5 mg/dL (8.5-10.1); Chloride 103 mmol/L (98-107); Glucose 117 mg/dL (74-106); Magnesium 1.7 mg/dL (1.8-2.4); Potassium 4.5 mmol/L (3.5-5.1); Sodium 136 mmol/L (136-145); Total Protein 6.9 g/dL (6.4-8.2)
== END 2021-08-01 23:59 | disposition home or self-care (01) ==
LOC: INF 01:26
PROVIDERS: PCP Internal Medicine; Visit Provider Internal Medicine Hematology & Oncology
DX: C32.9 Malignant neoplasm of larynx, unspecified (principal); Z45.2 Encounter for adjustment and management of vascular access device
CPT/HCPCS: 36591; 80053; 83735; 85025

== ENCOUNTER 2021-08-29 07:28 | Outpatient (RCR) | payer MEDICARE, OTHER, SELFPAY ==
[2021-08-29] MEDS: Normal Saline Flush 10 ML SYR IVP (07:41)
[2021-08-29 07:53] LABS: Abs Immature Grans 0.03 10^3/uL (0.0-0.06); Absolute Basophil Count 0.08 10^3/uL (0.0-0.2); Absolute Eosinophil Count 0.21 10^3/uL (0.0-0.7); Absolute Lymphocyte Count 0.65 10^3/uL (1.2-3.4); Absolute Monocyte Count 0.73 10^3/uL (0.1-0.8); Absolute Neutrophil Count 6.79 10^3/uL (1.2-6.7); Basophils % 0.9; Eosinophils % 2.5; HCT 34.3 % (40.0-50.0); HGB 11.2 g/dL (13.5-17.5); Immature Grans % 0.4; Lymphocytes % 7.7; MCH 30.3 pg (27.0-33.0); MCHC 32.7 % (32.0-36.0); MCV 92.7 fL (80-95); MPV 8.7 fL (8.0-11.0); Monocytes % 8.6; Neutrophils % 79.9; Nucleated RBC 0 %; Platelet Count 318 10^3/uL (130-400); RDW 15.1 % (11.8-14.1); RDW-SD 51.8 fL; WBC 8.49 10^3/uL (4.4-10.8)
[2021-08-29 08:08] LABS: ALT 24 U/L (16-63); AST 19 U/L (15-37); Albumin 3.2 g/dL (3.4-5.0); Alkaline Phosphatase 80 U/L (46-116); Anion Gap 5.4 mmol/L (3-11); BUN 21 mg/dL (7-18); Bilirubin, Total 0.4 mg/dL (0.2-1.0); CO2 27.6 mmol/L (21.0-32.0); CREATININE 0.8 mg/dL (0.70-1.30); Calcium 8.5 mg/dL (8.5-10.1); Chloride 103 mmol/L (98-107); Glucose 88 mg/dL (74-106); Magnesium 1.7 mg/dL (1.8-2.4); Potassium 4.4 mmol/L (3.5-5.1); Sodium 136 mmol/L (136-145); Total Protein 7.4 g/dL (6.4-8.2)
== END 2021-09-01 23:59 | disposition home or self-care (01) ==
LOC: INF 07:28
PROVIDERS: PCP Internal Medicine; Visit Provider Internal Medicine Hematology & Oncology
DX: C32.9 Malignant neoplasm of larynx, unspecified (principal); Z45.2 Encounter for adjustment and management of vascular access device
CPT/HCPCS: 36591; 80053; 83735; 85025

== ENCOUNTER 2021-09-16 00:55 | Outpatient (RCR) | payer MEDICARE, OTHER, SELFPAY ==
[2021-09-16] MEDS: Normal Saline Flush 10 ML SYR IVP (11:57)
[2021-09-16 12:00] LABS: Abs Immature Grans 0.03 10^3/uL (0.0-0.06); Absolute Basophil Count 0.05 10^3/uL (0.0-0.2); Absolute Eosinophil Count 0.11 10^3/uL (0.0-0.7); Absolute Lymphocyte Count 0.63 10^3/uL (1.2-3.4); Absolute Monocyte Count 0.57 10^3/uL (0.1-0.8); Absolute Neutrophil Count 6.28 10^3/uL (1.2-6.7); Basophils % 0.7; Eosinophils % 1.4; HCT 33.8 % (40.0-50.0); HGB 10.9 g/dL (13.5-17.5); Immature Grans % 0.4; Lymphocytes % 8.2; MCH 29.7 pg (27.0-33.0); MCHC 32.2 % (32.0-36.0); MCV 92.1 fL (80-95); MPV 8.9 fL (8.0-11.0); Monocytes % 7.4; Neutrophils % 81.9; Platelet Count 311 10^3/uL (130-400); RBC 3.67 10^6/uL (4.36-5.78); RDW 14.4 % (11.8-14.1); RDW-SD 48.8 fL; WBC 7.67 10^3/uL (4.4-10.8)
[2021-09-16 12:12] LABS: ALT 23 U/L (16-63); AST 25 U/L (15-37); Albumin 3.1 g/dL (3.4-5.0); Alkaline Phosphatase 87 U/L (46-116); Anion Gap 6.7 mmol/L (3-11); BUN 22 mg/dL (7-18); Bilirubin, Total 0.4 mg/dL (0.2-1.0); CO2 27.3 mmol/L (21.0-32.0); CREATININE 0.8 mg/dL (0.70-1.30); Calcium 8.2 mg/dL (8.5-10.1); Chloride 101 mmol/L (98-107); Glucose 110 mg/dL (74-106); Magnesium 1.5 mg/dL (1.8-2.4); Potassium 4.3 mmol/L (3.5-5.1); Sodium 135 mmol/L (136-145); Total Protein 7.4 g/dL (6.4-8.2)
== END 2021-10-01 23:59 | disposition home or self-care (01) ==
LOC: INF 00:55
PROVIDERS: PCP Internal Medicine; Visit Provider Internal Medicine Hematology & Oncology
DX: C32.9 Malignant neoplasm of larynx, unspecified (principal); Z45.2 Encounter for adjustment and management of vascular access device
CPT/HCPCS: 36591; 80053; 83735; 85025

== ENCOUNTER → 2021-09-16 18:31 | Outpatient (CLI) | payer MEDICARE, OTHER, SELFPAY ==
--- NOTE | 2021-09-16 15:00 | DI.CT_ITS ---
Exam(s) CT CHEST W EXAM: CT CHEST W CLINICAL HISTORY: LARYNGEAL CANCER C32.9 DYSPNEA R06.00 TECHNIQUE: Imaging Protocol: Axial computed tomography images with coronal and sagittal reformatted images were created and reviewed CONTRAST MATERIAL: Intravenous: Omnipaque 350 Contrast volume:70 mL. COMPARISON: CT CT NECK CHEST W from 03/07/2021 FINDINGS: Tracheobronchial tree: Patent where visualized. Bronchiectatic changes are seen in the lung bases. Pulmonary parenchyma: Multifocal ground-glass opacities are present. There is an underlying pulmonar y fibrosis. Mediastinum and Rohini: There are enlarged mediastinal lymph nodes. The largest measures 0.9 x 1.6 cm. The pulmonary masses and mediastinal adenopathy has significantly improved compared to the prior ex amination from 03/07/2021. The esophagus is unremarkable. There is a small hiatal hernia. Thyroid gland: Unremarkable. Pleura: Pleural calcifications are present. No pneumothorax. There is a tiny right pleural effusion . No significant left pleural effusion. Heart: The heart is enlarged. No coronary artery calcifications are seen. No pericardial effusion. Aorta: Thoracic aorta non-dilated. Atherosclerosis. Pulmonary arteries: The pulmonary arteries are inadequately opacified for evaluation of pulmonary emb devon. Upper abdomen: Hepatic cysts are again seen. Lymph nodes: Please see above. Bones: Within normal limits for the patient's age. Tubes, Catheters, and Lines: The tip of the right IJ catheter is in good position in the superior lucio a cava. Soft tissues: Unremarkable. IMPRESSION: 1. Overall improved appearance of the chest as regards to the thoracic adenopathy since 03/07/2021. 2. New multifocal pulmonary infiltrates suspicious for pneumonia. Neoplasm cannot be entirely exclud ed. 3. Pulmonary fibrosis and bronchiectasis. RADIATION DOSE DELIVERED: 590.72mGy.cm Total DLP DATA REPOSITORY: All CT scans at this facility are submitted to the National Radiology Data Registry (NRDR) Dose Index Registry (DIR) with the [employer] (ACR). RADIATION OPTIMIZATION: All CT scans at this facility use at least one of these dose optimization te chniques: automated exposure control; mA and/or kV adjustment per patient size (includes targeted exa ms where dose is matched to clinical indication); or iterative reconstruction.
[2021-09-16] MEDS: Omnipaque 350 MG/ML 100 ML BTL IJ (15:10)
[2021-09-16] MEDS: Normal Saline Flush 10 ML SYR IVP (15:12)
== END ==
PROVIDERS: PCP Internal Medicine; Visit Provider Internal Medicine Hematology & Oncology
DX: C32.9 Malignant neoplasm of larynx, unspecified (principal); R06.09 Other forms of dyspnea; J84.10 Pulmonary fibrosis, unspecified; R59.0 Localized enlarged lymph nodes; K44.9 Diaphragmatic hernia without obstruction or gangrene; R91.8 Other nonspecific abnormal finding of lung field; J47.9 Bronchiectasis, uncomplicated
CPT/HCPCS: 36591; 80053; 71260; 83735; 85025; J3490

== ENCOUNTER 2021-10-17 03:00 | Outpatient (RCR) | payer MEDICARE, OTHER, SELFPAY ==
[2021-10-17] MEDS: Normal Saline Flush 10 ML SYR IVP (10:10)
[2021-10-17] MEDS: Heparin 500 UNITS/5 ML SYRINGE IV (10:10)
[2021-10-17 10:27] LABS: Abs Immature Grans 0.04 10^3/uL (0.0-0.06); Absolute Basophil Count 0.02 10^3/uL (0.0-0.2); Absolute Eosinophil Count 0.07 10^3/uL (0.0-0.7); Absolute Lymphocyte Count 0.49 10^3/uL (1.2-3.4); Absolute Monocyte Count 0.54 10^3/uL (0.1-0.8); Absolute Neutrophil Count 9.83 10^3/uL (1.2-6.7); Basophils % 0.2; Eosinophils % 0.6; HCT 36.1 % (40.0-50.0); HGB 11.5 g/dL (13.5-17.5); Immature Grans % 0.4; Lymphocytes % 4.5; MCH 29.3 pg (27.0-33.0); MCHC 31.9 % (32.0-36.0); MCV 92 fL (80-95); MPV 8.9 fL (8.0-11.0); Monocytes % 4.9; Neutrophils % 89.4; Platelet Count 298 10^3/uL (130-400); RBC 3.92 10^6/uL (4.36-5.78); RDW 14.3 % (11.8-14.1); RDW-SD 47.8 fL; WBC 10.99 10^3/uL (4.4-10.8)
[2021-10-17 10:47] LABS: ALT 20 U/L (16-63); AST 17 U/L (15-37); Alkaline Phosphatase 64 U/L (46-116); BUN 21 mg/dL (7-18); Bilirubin, Total 0.4 mg/dL (0.2-1.0); CREATININE 0.8 mg/dL (0.70-1.30); Calcium 8.5 mg/dL (8.5-10.1); Chloride 101 mmol/L (98-107); Glucose 123 mg/dL (74-106); Potassium 4.1 mmol/L (3.5-5.1); Sodium 135 mmol/L (136-145); TSH 3.01 uIU/mL (0.36-3.74)
== END 2021-11-01 23:59 | disposition home or self-care (01) ==
LOC: INF 03:00
PROVIDERS: PCP Internal Medicine; Visit Provider Internal Medicine Hematology & Oncology
DX: C32.9 Malignant neoplasm of larynx, unspecified (principal); F32.A Depression, unspecified; Z45.2 Encounter for adjustment and management of vascular access device
CPT/HCPCS: 36591; 80053; 84443; 85025

== ENCOUNTER 2021-12-09 09:24 | Outpatient (RCR) | payer MEDICARE, OTHER, SELFPAY ==
[2021-12-09] MEDS: Normal Saline Flush 10 ML SYR IVP (09:38)
[2021-12-09] MEDS: Heparin 500 UNITS/5 ML SYRINGE (09:38)
[2021-12-09 09:41] LABS: Abs Immature Grans 0.02 10^3/uL (0.0-0.06); Absolute Basophil Count 0.03 10^3/uL (0.0-0.2); Absolute Eosinophil Count 0.26 10^3/uL (0.0-0.7); Absolute Monocyte Count 0.48 10^3/uL (0.1-0.8); Absolute Neutrophil Count 5.71 10^3/uL (1.2-6.7); Basophils % 0.4; Eosinophils % 3.7; HCT 38.9 % (40.0-50.0); HGB 12.5 g/dL (13.5-17.5); Immature Grans % 0.3; Lymphocytes % 8.5; MCH 29.7 pg (27.0-33.0); MCHC 32.1 % (32.0-36.0); MCV 92 fL (80-95); MPV 9.2 fL (8.0-11.0); Monocytes % 6.8; Neutrophils % 80.3; Platelet Count 272 10^3/uL (130-400); RBC 4.21 10^6/uL (4.36-5.78); RDW 14.5 % (11.8-14.1); RDW-SD 49.2 fL
[2021-12-09 10:08] LABS: ALT 21 U/L (16-63); AST 17 U/L (15-37); Albumin 3.4 g/dL (3.4-5.0); Alkaline Phosphatase 61 U/L (46-116); Anion Gap 6.5 mmol/L (3-11); BUN 20 mg/dL (7-18); Bilirubin, Total 0.4 mg/dL (0.2-1.0); CO2 29.5 mmol/L (21.0-32.0); CREATININE 0.8 mg/dL (0.70-1.30); Calcium 8.8 mg/dL (8.5-10.1); Chloride 101 mmol/L (98-107); Glucose 119 mg/dL (74-106); Magnesium 1.9 mg/dL (1.8-2.4); Potassium 4.2 mmol/L (3.5-5.1); Sodium 137 mmol/L (136-145); TSH 4.33 uIU/mL (0.36-3.74); Total Protein 7.1 g/dL (6.4-8.2)
== END 2022-01-01 23:59 | disposition home or self-care (01) ==
LOC: INF 09:24
PROVIDERS: PCP Internal Medicine; Visit Provider Internal Medicine Hematology & Oncology
DX: C32.9 Malignant neoplasm of larynx, unspecified (principal); F32.A Depression, unspecified; Z45.2 Encounter for adjustment and management of vascular access device
CPT/HCPCS: 36591; 80053; 83735; 84443; 85025

== ENCOUNTER → 2022-03-06 01:34 | Outpatient (CLI) | payer MEDICARE, OTHER, SELFPAY ==
--- NOTE | 2022-03-06 | DI.RAD_ITS ---
Exam(s) XR CHEST 2V PA LATERAL EXAM: XR CHEST 2V PA LATERAL CLINICAL HISTORY: PNEUMOTHORAX J93.9 TECHNIQUE: 2D digital imaging was performed. COMPARISON: CT CT CHEST W from 09/16/2021 FINDINGS: A port is noted over the right chest. HEART: Normal size. Aorta: PULMONARY VASCULATURE: Normal. LUNGS: Underlying fibrotic changes are noted. Given the extensive this of the fibrotic changes super imposed infiltrates are not excluded. PLEURAL SPACE: A tiny pneumothorax is visible at the left lung apex. No pleural effusion . BONE:Unremarkable for age. IMPRESSION: Tiny left apical pneumothorax. DATA REPOSITORY: RADIATION DOSE DELIVERED:
== END ==
PROVIDERS: PCP Internal Medicine; Visit Provider Internal Medicine Hematology & Oncology
DX: J93.83 Other pneumothorax (principal)
CPT/HCPCS: 36591; 80053; 71046; 85025

== ENCOUNTER 2022-04-03 02:35 | Outpatient (RCR) | payer MEDICARE, OTHER, SELFPAY ==
[2022-03-06] MEDS: Heparin 500 UNITS/5 ML SYRINGE IVP (09:04)
[2022-03-06] MEDS: Normal Saline Flush 10 ML SYR IVP (09:04)
[2022-03-06 09:08] LABS: Abs Immature Grans 0.03 10^3/uL (0.0-0.06); Absolute Basophil Count 0.05 10^3/uL (0.0-0.2); Absolute Eosinophil Count 0.09 10^3/uL (0.0-0.7); Absolute Lymphocyte Count 0.52 10^3/uL (1.2-3.4); Absolute Monocyte Count 0.56 10^3/uL (0.1-0.8); Absolute Neutrophil Count 7.63 10^3/uL (1.2-6.7); Basophils % 0.6; HCT 37.3 % (40.0-50.0); HGB 12.2 g/dL (13.5-17.5); Immature Grans % 0.3; Lymphocytes % 5.9; MCH 30.2 pg (27.0-33.0); MCHC 32.7 % (32.0-36.0); MCV 92 fL (80-95); MPV 9.3 fL (8.0-11.0); Monocytes % 6.3; Neutrophils % 85.9; Platelet Count 322 10^3/uL (130-400); RBC 4.04 10^6/uL (4.36-5.78); RDW 13.3 % (11.8-14.1); RDW-SD 45.5 fL; WBC 8.88 10^3/uL (4.4-10.8)
[2022-03-06 09:36] LABS: ALT 16 U/L (16-63); AST 20 U/L (15-37); Albumin 3.3 g/dL (3.4-5.0); Alkaline Phosphatase 77 U/L (46-116); Anion Gap 5.7 mmol/L (3-11); BUN 25 mg/dL (7-18); Bilirubin, Total 0.4 mg/dL (0.2-1.0); CO2 31.3 mmol/L (21.0-32.0); CREATININE 0.9 mg/dL (0.70-1.30); Calcium 9.1 mg/dL (8.5-10.1); Chloride 98 mmol/L (98-107); Estimated GFR 94.19 (mL/min/1.73m2); Glucose 103 mg/dL (74-106); Potassium 4.3 mmol/L (3.5-5.1); Sodium 135 mmol/L (136-145); Total Protein 7.6 g/dL (6.4-8.2)
[2022-04-03] MEDS: Normal Saline Flush 10 ML SYR IVP (08:23)
[2022-04-03 08:43] LABS: Abs Immature Grans 0.01 10^3/uL (0.0-0.06); Absolute Basophil Count 0.03 10^3/uL (0.0-0.2); Absolute Eosinophil Count 0.07 10^3/uL (0.0-0.7); Absolute Lymphocyte Count 0.56 10^3/uL (1.2-3.4); Absolute Monocyte Count 0.54 10^3/uL (0.1-0.8); Absolute Neutrophil Count 3.71 10^3/uL (1.2-6.7); Basophils % 0.6; Eosinophils % 1.4; HCT 34.4 % (40.0-50.0); Immature Grans % 0.2; Lymphocytes % 11.4; MCH 29.7 pg (27.0-33.0); MCV 93 fL (80-95); Neutrophils % 75.4; Platelet Count 280 10^3/uL (130-400); RDW 14.1 % (11.8-14.1); RDW-SD 47.7 fL; WBC 4.92 10^3/uL (4.4-10.8)
[2022-04-03 08:57] LABS: ALT 18 U/L (16-63); AST 27 U/L (15-37); Albumin 3.1 g/dL (3.4-5.0); Alkaline Phosphatase 75 U/L (46-116); Anion Gap 2.3 mmol/L (3-11); BUN 21 mg/dL (7-18); Bilirubin, Total 0.3 mg/dL (0.2-1.0); CO2 31.7 mmol/L (21.0-32.0); CREATININE 0.8 mg/dL (0.70-1.30); Calcium 8.7 mg/dL (8.5-10.1); Chloride 102 mmol/L (98-107); Estimated GFR 97.61 (mL/min/1.73m2); Glucose 104 mg/dL (74-106); Potassium 4.1 mmol/L (3.5-5.1); Sodium 136 mmol/L (136-145); Total Protein 6.7 g/dL (6.4-8.2)
== END 2022-04-03 23:59 | disposition home or self-care (01) ==
LOC: INF 02:35
PROVIDERS: PCP Internal Medicine; Visit Provider Internal Medicine Hematology & Oncology
DX: C32.9 Malignant neoplasm of larynx, unspecified (principal); Z45.2 Encounter for adjustment and management of vascular access device
CPT/HCPCS: 36591; 80053; 85025

== ENCOUNTER 2022-04-24 02:20 | Outpatient (RCR) | payer MEDICARE, OTHER, SELFPAY ==
[2022-04-24] MEDS: Normal Saline Flush 10 ML SYR IVP (09:15)
[2022-04-24 09:34] LABS: Abs Immature Grans 0.01 10^3/uL (0.0-0.06); Absolute Basophil Count 0.07 10^3/uL (0.0-0.2); Absolute Eosinophil Count 0.13 10^3/uL (0.0-0.7); Absolute Lymphocyte Count 0.56 10^3/uL (1.2-3.4); Absolute Monocyte Count 0.75 10^3/uL (0.1-0.8); Absolute Neutrophil Count 5.36 10^3/uL (1.2-6.7); Eosinophils % 1.9; HCT 36.1 % (40.0-50.0); HGB 11.7 g/dL (13.5-17.5); Immature Grans % 0.1; Lymphocytes % 8.1; MCH 29.7 pg (27.0-33.0); MCHC 32.4 % (32.0-36.0); MCV 92 fL (80-95); MPV 9.7 fL (8.0-11.0); Monocytes % 10.9; Platelet Count 324 10^3/uL (130-400); RBC 3.94 10^6/uL (4.36-5.78); RDW 13.9 % (11.8-14.1); RDW-SD 46.9 fL; WBC 6.88 10^3/uL (4.4-10.8)
[2022-04-24 09:55] LABS: ALT 18 U/L (16-63); AST 18 U/L (15-37); Albumin 3.2 g/dL (3.4-5.0); Alkaline Phosphatase 85 U/L (46-116); Anion Gap 3.1 mmol/L (3-11); BUN 21 mg/dL (7-18); Bilirubin, Total 0.3 mg/dL (0.2-1.0); CO2 31.9 mmol/L (21.0-32.0); CREATININE 0.8 mg/dL (0.70-1.30); Chloride 98 mmol/L (98-107); Estimated GFR 97.61 (mL/min/1.73m2); Glucose 113 mg/dL (74-106); Sodium 133 mmol/L (136-145); TSH 5.41 uIU/mL (0.36-3.74); Total Protein 7.2 g/dL (6.4-8.2)
== END 2022-05-03 23:59 | disposition home or self-care (01) ==
LOC: INF 02:20
PROVIDERS: PCP Internal Medicine; Visit Provider Internal Medicine Hematology & Oncology
DX: C32.9 Malignant neoplasm of larynx, unspecified (principal); R53.83 Other fatigue; J84.89 Other specified interstitial pulmonary diseases; Z45.2 Encounter for adjustment and management of vascular access device
CPT/HCPCS: 36591; 80053; 84443; 85025

== ENCOUNTER 2022-05-15 03:02 | Outpatient (RCR) | payer MEDICARE, OTHER, SELFPAY ==
[2022-05-15] MEDS: Normal Saline Flush 10 ML SYR IVP (09:03)
[2022-05-15 09:18] LABS: Abs Immature Grans 0.01 10^3/uL (0.0-0.06); Absolute Basophil Count 0.05 10^3/uL (0.0-0.2); Absolute Eosinophil Count 0.13 10^3/uL (0.0-0.7); Absolute Lymphocyte Count 0.52 10^3/uL (1.2-3.4); Absolute Monocyte Count 0.58 10^3/uL (0.1-0.8); Basophils % 0.8; Immature Grans % 0.2; Lymphocytes % 8.1; MCH 29.3 pg (27.0-33.0); MCHC 32.4 % (32.0-36.0); MCV 90 fL (80-95); MPV 9.8 fL (8.0-11.0); Monocytes % 9.1; Neutrophils % 79.8; Platelet Count 324 10^3/uL (130-400); RBC 3.76 10^6/uL (4.36-5.78); RDW-SD 46.2 fL; WBC 6.39 10^3/uL (4.4-10.8)
[2022-05-15 09:46] LABS: ALT 16 U/L (16-63); AST 19 U/L (15-37); Albumin 3.1 g/dL (3.4-5.0); Alkaline Phosphatase 89 U/L (46-116); Anion Gap 3.6 mmol/L (3-11); BUN 23 mg/dL (7-18); Bilirubin, Total 0.3 mg/dL (0.2-1.0); CO2 30.4 mmol/L (21.0-32.0); CREATININE 0.9 mg/dL (0.70-1.30); Calcium 8.7 mg/dL (8.5-10.1); Chloride 98 mmol/L (98-107); Estimated GFR 94.19 (mL/min/1.73m2); Glucose 98 mg/dL (74-106); Potassium 4.3 mmol/L (3.5-5.1); Sodium 132 mmol/L (136-145); TSH 5.71 uIU/mL (0.36-3.74); Total Protein 6.9 g/dL (6.4-8.2)
== END 2022-06-03 23:59 | disposition home or self-care (01) ==
LOC: INF 03:02
PROVIDERS: PCP Internal Medicine; Visit Provider Internal Medicine Hematology & Oncology
DX: C32.9 Malignant neoplasm of larynx, unspecified (principal); R53.83 Other fatigue; Z45.2 Encounter for adjustment and management of vascular access device
CPT/HCPCS: 36591; 80053; 84443; 85025

== ENCOUNTER 2022-07-20 01:21 | Outpatient (RCR) | payer MEDICARE, OTHER, SELFPAY ==
[2022-07-20] MEDS: Heparin 500 UNITS/5 ML SYRINGE IV (13:53)
[2022-07-20] MEDS: Normal Saline Flush 10 ML SYR IVP (13:53)
== END 2022-08-01 23:59 | disposition home or self-care (01) ==
LOC: INF 01:21
PROVIDERS: PCP Internal Medicine; Visit Provider Internal Medicine Hematology & Oncology
DX: Z45.2 Encounter for adjustment and management of vascular access device (principal)
CPT/HCPCS: 96523

== ENCOUNTER 2022-08-07 02:41 | Outpatient (RCR) | payer MEDICARE, SELFPAY ==
[2022-08-07 08:39] LABS: Abs Immature Grans 0.03 10^3/uL (0.0-0.06); Absolute Basophil Count 0.03 10^3/uL (0.0-0.2); Absolute Eosinophil Count 0.11 10^3/uL (0.0-0.7); Absolute Lymphocyte Count 0.61 10^3/uL (1.2-3.4); Absolute Monocyte Count 0.41 10^3/uL (0.1-0.8); Absolute Neutrophil Count 7.67 10^3/uL (1.2-6.7); Basophils % 0.3; Eosinophils % 1.2; HGB 11.1 g/dL (13.5-17.5); Immature Grans % 0.3; Lymphocytes % 6.9; MCH 28.4 pg (27.0-33.0); MCHC 31.7 % (32.0-36.0); MCV 90 fL (80-95); Monocytes % 4.6; Neutrophils % 86.7; Platelet Count 331 10^3/uL (130-400); RBC 3.91 10^6/uL (4.36-5.78); RDW 15.1 % (11.8-14.1); RDW-SD 49.5 fL; WBC 8.86 10^3/uL (4.4-10.8)
[2022-08-07] MEDS: Normal Saline Flush 10 ML SYR IVP (09:06)
[2022-08-07 09:09] LABS: ALT 15 U/L (16-63); AST 19 U/L (15-37); Alkaline Phosphatase 113 U/L (46-116); Anion Gap 4.8 mmol/L (3-11); BUN 25 mg/dL (7-18); Bilirubin, Total 0.3 mg/dL (0.2-1.0); CO2 32.2 mmol/L (21.0-32.0); CREATININE 0.8 mg/dL (0.70-1.30); Calcium 9.2 mg/dL (8.5-10.1); Chloride 102 mmol/L (98-107); Glucose 91 mg/dL (74-106); Potassium 4.1 mmol/L (3.5-5.1); Sodium 139 mmol/L (136-145); TSH 4.02 uIU/mL (0.36-3.74); Total Protein 7.4 g/dL (6.4-8.2)
== END 2022-09-01 23:59 | disposition home or self-care (01) ==
LOC: INF 02:41
PROVIDERS: PCP Internal Medicine; Visit Provider Internal Medicine Hematology & Oncology
DX: C32.9 Malignant neoplasm of larynx, unspecified (principal); R53.83 Other fatigue; Z45.2 Encounter for adjustment and management of vascular access device
CPT/HCPCS: 36591; 80053; 84443; 85025